=== PATIENT | female | born 1980 | race Two or more races ===

== ENCOUNTER 2024-10-10 15:04 | Emergency (ER) | payer OTHER ==
[~2024-10-10] VITALS: Ht 154.9 cm; Wt 69.4 kg
[~2024-10-10 15:04] MED LIST: ADVAIR 2501 DISK W/1 IH; KETO10TA2 PO; SINGULAIR 10MG10 MG PO
[2024-10-10] MEDS ORDERED: hydrALAZINE HCL 20 MG VIAL IV ONE (17:45)
[2024-10-10] MEDS ORDERED: hydrALAZINE HCL 20 MG VIAL ONE (17:53)
[2024-10-10 18:20] LABS: HEMATOCRIT 42.1 % (36.0-45.00); HEMOGLOBIN 13.8 g/dL (12.0-15.00); MEAN CELL VOLUME 84.3 fL (80.00-100.00); MEAN CORPUSCULAR HEMOGLOBIN 27.6 pg (27.00-32.0); MEAN CORPUSCULAR HGB CONC 32.8 g/dl (32.0-36.0); PLATELET COUNT 356 K/uL (150-450); RED BLOOD COUNT 4.99 M/uL (4.00-6.00); RED CELL DISTRIBUTION WIDTH 14.6 % (11.5-14.5)
[2024-10-10] MEDS ORDERED: ONDANSETRON HCL 2 MG/ML VIAL ONE (18:35)
[2024-10-10] MEDS ORDERED: FAMOTIDINE/PF 20 MG/2 ML VIAL ONE (18:35)
[2024-10-10] MEDS ORDERED: BUTALB/ACETAMINOPHEN/CAFFEINE 1 TAB TABLET PO ONE ×2 (19:15→19:22)
[2024-10-10 19:19] LABS: ALBUMIN 3.8 gm/dL (3.4-5.0); BILIRUBIN TOTAL 0.26 mg/dL (0.3-1.2); CALCIUM 9.5 mg/dL (8.5-10.1); CREATININE SERUM 0.62 mg/dL (0.55-1.02); GFR 105.56; GLOBULINA 4.1 G/DL (2.4-3.5); POTASSIUM 3.87 mEq/L (3.5-5.1); TOTAL PROTEIN 7.9 gm/dL (6.4-8.2); TSH 1.61 uIU/mL (0.358-3.74)
[2024-10-10] MEDS ORDERED: ONDANSETRON HCL 2 MG/ML VIAL IV STA (19:28)
[2024-10-10] MEDS ORDERED: FAMOTIDINE/PF 20 MG/2 ML VIAL IV PUSH STA (19:29)
[2024-10-10] MEDS ORDERED: SUMATRIPTAN SUCCINATE 6 MG/0.5 ML VIAL SUBCUTANEO ONE ×2 (20:30→20:49)
[2024-10-10] MEDS ORDERED: KETOROLAC TROMETHAMINE 30 MG VIAL ONE (22:15)
[2024-10-10] MEDS ORDERED: METHYLPREDNISOLONE SOD SUCC 125 MG VIAL ONE (22:15)
[2024-10-10] MEDS ORDERED: METHYLPREDNISOLONE SOD SUCC 125 MG VIAL IV ONE (22:15)
[2024-10-10] MEDS ORDERED: KETOROLAC TROMETHAMINE 30 MG VIAL IV ONE (22:15)
[2024-10-10] MEDS ORDERED: COZAAR50 MG PO (23:10)
[2024-10-10] MEDS ORDERED: BUTALBIT-ACETA1 EACH PO (23:11)
== END 2024-10-10 23:37 | disposition home or self-care (01) ==
LOC: ER 15:06
PROVIDERS: General Practice
DX: I16.9 Hypertensive crisis, unspecified (principal); I10 Essential (primary) hypertension